=== PATIENT | female | born 1945 | race Caucasian/White ===

== ENCOUNTER 2016-10-17 22:03 | Emergency (ER) | payer MEDICARE, OTHER ==
[2010-01-25 14:31] VITALS: BMI 38.4
== END 2016-10-17 22:45 | disposition home or self-care (01) ==
LOC: D.ER 22:03
DX: I10 Essential (primary) hypertension (principal); F32.9 Major depressive disorder, single episode, unspecified; K21.9 Gastro-esophageal reflux disease without esophagitis

== ENCOUNTER 2016-10-22 20:44 | Inpatient (IN) | payer MEDICARE, OTHER ==
[~2016-10-22] VITALS: Ht 170.2 cm; Wt 118.7 kg
[2016-10-23 00:17] LABS: APPEARANCE HAZY (CLEAR); BACTERIA MANY /hpf (NONE SEEN); BILIRUBIN NEGATIVE (NEGATIVE); COLOR YELLOW (YELLOW); EPITHELIAL CELLS 0-5 /hpf (0-5); GLUCOSE NEGATIVE (NEGATIVE); KETONE NEGATIVE (NEGATIVE); LEUKOCYTE ESTERASE 1+ (NEGATIVE); NITRITE POSITIVE (NEGATIVE); PROTEIN TRACE mg/dL (NEGATIVE); RED CELLS - URINE 0-5 /hpf (0-5); SPECIFIC GRAVITY 1.015 (1.005-1.020); UROBILINOGEN NORMAL (NORMAL)
[2016-10-23 00:27] LABS: HEMATOCRIT 39.5 % (36.0-48.0); LYMPHOCYTES 34.2 % (15-50); MCH 28.3 pg (26.0-34.0); MCHC 35.4 g/dL (31.0-37.0); MCV 79.8 fL (80.0-100.0); MEAN PLATELET VOLUME 7.8 fL (7.4-10.4); NEUTROPHILS 54.4 % (40-80); PLATELET COUNT 239 10x3/uL (130-400); RBC 4.95 10x6/uL (4.00-5.40); RDW 14.4 % (11.5-14.5); WBC 8.4 10x3/uL (4.8-10.8)
[2016-10-23 01:00] LABS: CALCIUM 9.4 mg/dL (8.5-10.1); CARBON DIOXIDE 24.5 mmol/L (21.0-32.0); CREATINE KINASE 422 UL (21-215); CREATININE - SERUM 0.8 mg/dL (0.6-1.3); GLUCOSE 116 mg/dL (74-106); POTASSIUM - SERUM 3.3 mmol/L (3.5-5.1); UREA NITROGEN 9 mg/dL (7-18); eGFR NON AFRICAN AMERICAN 75 mL/min (90-120)
[2016-10-23 01:03] LABS: CALC OSMOLALITY 237 mosm/kg (275-300); CHLORIDE - SERUM 82 mmol/L (98-107); SODIUM 118 mmol/L (136-145); TROPONIN-I < 0.017 ng/mL (0.000-0.060)
--- NOTE | 2016-10-23 04:30 | NUR ---
PT ARRIVES TO FLOOR VIA WC ACCOMPANIED BY ER NURSE AND PT'S SPOUSE. ASSISTED INTO BED WITH MINIMAL ASSIST. IV TO LEFT UPPER ARM, IV IS VERY POSITIONAL. UNABLE TO RUN IV FLUIDS CONTINUOUSLY VIA THIS SITE. ATTEMPTED TO RESITE X4 WITHOUT SUCCESS BY NURSES X2. WILL HAVE IV NURSE COME TO SEE PT TODAY. ADMISSION ASSESSMENT AND HISTORY COMPLETED, VSS, AFEBRILE. CALL LIGHT PLACED WITHIN REACH. WILL MONITOR.
[2016-10-23] MEDS ORDERED: CARDIZEM CD240 MG PO (04:51)
[2016-10-23] MEDS ORDERED: DEPAKOTE ER250 MG PO (04:52)
[2016-10-23] MEDS ORDERED: PROTONIX40 MG PO (04:52)
[2016-10-23] MEDS ORDERED: HCTZ25 MG PO (04:53)
[2016-10-23] MEDS ORDERED: CHERATUSSIN AC473 ML PO (04:54)
[2016-10-23] MEDS ORDERED: ATIVAN0.5 MG PO (04:57)
[2016-10-23] MEDS ORDERED: CATAPRES0.1 MG PO (04:57)
[2016-10-23] MEDS ORDERED: CALCIUM 600+D T1 TA1 PO (04:58)
[2016-10-23 05:01] VITALS: BP 156/78; Ht 170.2 cm; Wt 118.7 kg
--- NOTE | 2016-10-23 07:15 | NUR ---
PT SITTING UP IN BED DENIES NEEDS AT THIS TIME WILL CONT TO MONITOR
[2016-10-23 07:23] LABS: CREATINE KINASE 380 UL (21-215); TROPONIN-I < 0.017 ng/mL (0.000-0.060)
[2016-10-23 07:31] LABS: CKMB 4.2 U/L (0.0-3.6)
[2016-10-23 08:04] VITALS: BP 151/63
--- NOTE | 2016-10-23 08:09 | NUR ---
CALLED GLO VASCULAR ACCESS NURSE TO COME SITE PT PIV.
--- NOTE | 2016-10-23 09:29 | NUR ---
GLO SITED PT TO R UPPER FA NS RUNNING AT 100 CC/HR. DC PIV WITH CATH TIP INTACT IN LEFT FA.
[2016-10-23 11:44] VITALS: BP 145/70
[2016-10-23 12:21] LABS: CKMB 3.9 U/L (0.0-3.6); CREATINE KINASE 362 UL (21-215); TROPONIN-I < 0.017 ng/mL (0.000-0.060)
--- NOTE | 2016-10-23 13:06 | NUR ---
PT SITTING UP IN BED IV FLUIDS STILL INFUSING WITHOUT ANY PROBLEMS. PT DENIES ANY NEEDS WILL CONT TO MONITOR
--- NOTE | 2016-10-23 14:40 | NUR ---
PT C/O HEADACHE. TRYING TO GET AHOLD OF PCP FOR TYLENOL ORDER.
--- NOTE | 2016-10-23 15:35 | NUR ---
HAVE BEEN UNABLE TO COLLECT URINE SAMPLE R/T TO MISSING THE HAT IN TOILET. HAVE ADJUSTED IT ACCORDINGLY, WILL KEEP ATTEMPTING COLLECTION
[2016-10-23 16:00] VITALS: BP 146/67
--- NOTE | 2016-10-23 16:38 | CN ---
PATIENT NAME:ANNABELLE GOMES MEDICAL RECORD: [id number] : 47 LOCATION:D. D.2129 ADMIT DATE: 10/23/16 ACCOUNT: [id number] CONSULTING PHYSICIAN: KANWAL WATERS MD REFERRING PHYSICIAN: WILI PAGAN MD DATE OF CONSULTATION: 10/23/2016 DIAGNOSES: 1. Hypertension. 2. Chest pain. 3. Hyponatremia. HISTORY OF PRESENT ILLNESS: Mrs. Gomes presents with chest pain and out of control blood pressure. Her systolic blood pressure has been running in the 200 range. She was on diltiazem 240 mg b.i.d. as well as clonidine 0.1 mg b.i.d. She did have chest pressure and now that her blood pressure has lowered she has had no further chest pressure. She was as well on hydrochlorothiazide. She comes with a sodium in the 118 range. She has a normal creatinine. Troponin is normal. EKG is with no ST-T changes. Her only risk factor for coronary artery disease other than hypertension is family history of coronary artery disease. REVIEW OF SYSTEMS: The patient reports easy bruising but reports no swollen glands. The patient reports no fever, no night sweats, no significant weight gain, no significant weight loss. No significant exercise tolerance. The patient reports no dry eyes, no irritation, no vision change. Patient reports no difficulty hearing and no ear pain. Patient reports no frequent nose bleeds or nose and sinus problems. Patient reports on arm pain on exertion. No shortness of breath while lying down. No history of heart murmur. Patient reports no cough, no wheezing or coughing up blood. Patient reports no abdominal pain, no vomiting. Normal appetite. No diarrhea and not vomiting blood. No nausea and no constipation. Patient reports no incontinence. No difficulty urinating. No hematuria. No increased frequency. Patient reports no muscle aches. No weakness, no arthralgias, no back pain. No swelling of the extremities. Patient reports no abnormal mole, no jaundice, no rashes. Reports no loss of consciousness. No weakness and no numbness. No seizures, dizziness, or headaches. The patient reports no depression, no sleep disturbance, feeling safe in a relationship and no alcohol abuse. Patient reports on fatigue. Reports no runny nose or sinus pressure. No itching, no hives, and no frequent sneezing. PHYSICAL EXAMINATION: GENERAL APPEARANCE: Well-nourished, well-developed, appears stated age. Level of distress, comfortable. PSYCHIATRIC: Mental status, alert, normal affect. Orientation, oriented to time, place and person. EYES: Lids and conjunctiva, noninjected. No discharge, no pallor. ENT: Lips, teeth, gums, normal dentition. Oropharynx, no cyanosis, no pallor. NECK: Carotid arteries, bilateral normal upstroke, no bruits, no thrills. JUGULAR VEINS: No jugular venous pressure or distention. CERVICAL LYMPH NODES: Nontender, nonenlarged. THYROID: Not enlarged. Nontender. No nodules. LUNGS: Respiratory effort, unlabored. CHEST: Normal curvature. No thoracic deformity. No chest wall tenderness. Percussion, resonant. Auscultation, clear. No wheezes, no rales, no rhonchi. CARDIOVASCULAR: Precordial exam, nondisplaced. No heaves or pericardial CONSULT REPORT [id number] ANNABELLE GOMES. Rate and rhythm, regular. Heart sounds, normal S1, normal S2. No S3, no gallop, no rub. Systolic murmur, not heard. Diastolic murmur, not heard. EXTREMITIES: No cyanosis, no edema. Peripheral pulses, full and equal in all extremities, except as noted. No bruits appreciated. ABDOMEN: Soft, nondistended. Normal aorta. No bruit. Nontender. No masses. Liver, nontender, no hepatomegaly. Spleen, nontender, no splenomegaly. MUSCULOSKELETAL: No joint tenderness. No joint swelling. No erythema. NEUROLOGICAL: Normal gait, normal strength, normal tone. SKIN: Warm and dry. OVERALL IMPRESSION: Chest pain associated with hypertension. Most likely this is just associated with the out of control hypertension. We would discontinue the hydrochlorothiazide obviously with the hyponatremia. They are replacing her sodium appropriately and we will continue the diltiazem as well as the clonidine b.i.d. and add lisinopril b.i.d. to her medications. We can also add Cardura if needed. She is quite bradycardic and we would avoid beta blockers due that. We will risk stratify with stress testing as an outpatient. TRANSINT:[id number] Voice Confirmation ID: [id number] DOCUMENT ID: [id number] KANWAL WATERS MD at 1638 CC: [id number] DICTATION DATE: 10/23/16 0829 PROFESSIONAL DRIVER: 10/23/16 1111 ADM IN [place] [id number] [place] [address]
--- NOTE | 2016-10-23 18:20 | NUR ---
PT SITTING UP IN BED WATCHING TV DENIES ANY NEEDS
[2016-10-23 18:44] LABS: CKMB 3.1 U/L (0.0-3.6); CREATINE KINASE 345 UL (21-215)
[2016-10-23 18:46] LABS: TROPONIN-I < 0.017 ng/mL (0.000-0.060)
[2016-10-23 19:00] VITALS: BP 186/78
[2016-10-24] VITALS: BP 170/69
[2016-10-24 07:04] LABS: ALBUMIN 3.8 g/dL (3.4-5.0); ALKALINE PHOSPHATASE 79 U/L (46-116); ALT (SGPT) 28 U/L (10-68); CALC OSMOLALITY 243 mosm/kg (275-300); CALCIUM 8.9 mg/dL (8.5-10.1); CARBON DIOXIDE 24.6 mmol/L (21.0-32.0); CHLORIDE - SERUM 87 mmol/L (98-107); CREATININE - SERUM 0.8 mg/dL (0.6-1.3); GLUCOSE 106 mg/dL (74-106); POTASSIUM - SERUM 3.1 mmol/L (3.5-5.1); PROTEIN - SERUM 7.2 g/dL (6.4-8.2); SODIUM 122 mmol/L (136-145); UREA NITROGEN 7 mg/dL (7-18); eGFR NON AFRICAN AMERICAN 75 mL/min (90-120)
--- NOTE | 2016-10-24 07:40 | NUR ---
PT IN SEMI FOWLERS POSITION VISITING WITH . PT DENIES PAIN OR NEEDS AT THIS TIME. RESP. EVEN AND UNLABORED AT THIS TIME.
[2016-10-24 08:00] VITALS: BP 182/90
--- NOTE | 2016-10-24 09:00 | NUR ---
PT AMBULATING IN HALLWAY WITH PT.
--- NOTE | 2016-10-24 09:40 | NUR ---
PHYSICAL ASSESSMENT DONE AFTER PT OUT OF RESTROOM WHERE SHE VOIDS PER SELF. SEE SHIFT ASSESSMENT. NS INFUSING VIA PUMP AT 100ML/HR TO RIGHT UPPER ARM. SITE C/D/I. UPPER RIGHT EXTREMETY SWOLLEN, NON-PITTING. PT STATES, "IT IS USUALLY ALWAYS A LITTLE MORE SWOLLEN THAN THE LEFT ARM DUE TO AN ALLERGIC REACTION A LONG TIME AGO, BUT MY HAND IS MORE SWOLLEN THAN USUAL AND MY THUMB HURTS WITHMOVEMENT". PULSES 2+ IN ALL EXTREMETIES; CAP.REFILL LESS THAN 3 SEC IN ALL EXTREMETIES. LUNGS CLEAR TO AUSCULTATION. SOCKS REMOVED AND REPLACED. 1+ PITTING EDEMA NOTED IN LOWER EXTREMETIES BILATERALLY. PT DENIES PAIN AT THIS TIME BUT DOES REPORT A COUGH THAT PRODUCES SCANT AMOUNT OF CLEAR SPUTUM. PT REQUESTS COUGH MEDICINE.
--- NOTE | 2016-10-24 10:12 | NUR ---
ROBITUSSIN COUGH MIXTURE GIVEN PO SEE EMAR. PT DENIES FURTHER NEEDS AT THIS TIME.
[2016-10-24 10:45] VITALS: BP 162/72; BP 184/68
[2016-10-24 12:00] VITALS: BP 162/80
--- NOTE | 2016-10-24 12:07 | NUR ---
PT CONTINUES TO REPORT PAIN IN RIGHT THUMB AND STATES THAT IT IS INCREASING IN SEVERITY. PT RATES PAIN 5/10 AT THIS TIME. TYLENOL 650MG GIVEN PO. IV PAUSED AT THIS TIME TO SEE IF PAIN DECREASES WHILE FLUID IS NOT INFUSING. SITE REMAINS C/D/I AND FLUSHES WITHOUT DIFFICULTY. WILL CONTINUE TO MONITOR.
--- NOTE | 2016-10-24 12:50 | NUR ---
PT SITTING IN HIGH FOWLERS POSITION EATING LUNCH. PT REPORTS THAT PAIN IN RIGHT THUMB HAS DECREASED "SIGNIFICANTLY". RATES PAIN 3/10. EXPLAINED TO PT THAT IV INFUSION WOULD BE RESTARTED AT THIS TIME TO ASSESS WHETHER OR NOT PAIN INCREASES AGAIN. PT VERBALIZES UNDERSTANDING AND DENIES FURTHER NEEDS AT THIS TIME.
--- NOTE | 2016-10-24 14:00 | NUR ---
PT DENIES INCREASE IN SEVERITY OF PAIN IN RIGHT HAND AFTER IV INFUSION ADMINISTRATION. PT REPORTS READINESS TO SHOWER. PT ASSISTED IN SHOWER, LINENS CHANGED, CLEAN GOWN APPLIED AND PT BACK TO BED IN SEMI FOWLERS
[2016-10-24 16:00] VITALS: BP 156/69
--- NOTE | 2016-10-24 16:00 | NUR ---
PT IN SEMI FOWLERS POSITION. GRANDAUGHTER AT BEDSIDE. BOTH DENIES NEEDS AT THIS TIME.
--- NOTE | 2016-10-24 17:00 | NUR ---
PT IN HIGH FOWLERS POSITION EATING DINNER TRAY. PT REQUESTS TYLENOL GIVEN PO FOR PAIN 4/10 IN RIGHT HAND.
--- NOTE | 2016-10-24 18:06 | NUR ---
PT AMBULATING IN ROOM BACK FROM BATHROOM. TYLENOL 650MG GIVEN PO FOR PT COMPLAINT OF PAIN IN RIGHT HAND 08/11. PT DENIES FURTHER NEEDS AT THIS TIME.
[2016-10-24 19:00] VITALS: BP 184/86
--- NOTE | 2016-10-24 20:50 | NUR ---
AMBUALTING IN ROOM. ADMIN SCHED MEDS. IV IN R UA INTACT WITH NS INFUSING AT 100 ML/HR. DENIES PAIN OR ANY OTHER NEEDS.
[2016-10-25] VITALS: BP 165/72
[2016-10-25 04:00] VITALS: BP 188/73
--- NOTE | 2016-10-25 05:30 | NUR ---
ADMIN TYLENOL 650 MG FOR C/O SHOULDER PAIN LEVEL 4 ON NUMBER SCALE, DESCRIBED ACHING. ADMIN SCHED PO MEDS. NO OTHER NEEDS VOICED.
[2016-10-25 06:38] LABS: BASOPHILS 0.4 % (0-2); EOSINOPHILS 1.3 % (0-7); HEMATOCRIT 37.2 % (36.0-48.0); IMMATURE GRANULOCYTES 0.1 % (0-5); MCH 28.8 pg (26.0-34.0); MCHC 34.9 g/dL (31.0-37.0); MCV 82.3 fL (80.0-100.0); MEAN PLATELET VOLUME 8.9 fL (7.4-10.4); MONOCYTES 13.2 % (2-11); PLATELET COUNT 222 10x3/uL (130-400); RBC 4.52 10x6/uL (4.00-5.40); RDW 13.7 % (11.5-14.5); WBC 6.9 10x3/uL (4.8-10.8)
[2016-10-25 07:02] LABS: CALC OSMOLALITY 261 mosm/kg (275-300); CALCIUM 9.1 mg/dL (8.5-10.1); CARBON DIOXIDE 25.8 mmol/L (21.0-32.0); CHLORIDE - SERUM 95 mmol/L (98-107); CREATININE - SERUM 0.8 mg/dL (0.6-1.3); GLUCOSE 101 mg/dL (74-106); POTASSIUM - SERUM 3.1 mmol/L (3.5-5.1); SODIUM 131 mmol/L (136-145); UREA NITROGEN 9 mg/dL (7-18); eGFR NON AFRICAN AMERICAN 75 mL/min (90-120)
--- NOTE | 2016-10-25 07:30 | NUR ---
AM ROUNDS - PT RESTING QUIETLY, DENIES NEEDS AT THIS TIME. PT STATES THAT PAIN IS 5/10, PT REQUESTED FOR SOMETHING STRONGER FOR PAIN. WILL FOLLOW UP. PT UP IN BATHROOM, FAMILY MEMBER ASSISTING PT WITH CARE. DENIES OTHER NEEDS, WILL CTM.
[2016-10-25 08:00] VITALS: BP 184/69
--- NOTE | 2016-10-25 09:43 | NUR ---
PT IS RESTING IN BED AND DENIES ANY CURRENT PAIN OR NEEDS. PTS HEAD NURSE IS JUANIS BREWER WHOM I AM THE PRECEPTOR OF, PT VERBALIZED THAT SHE HAS DONE EVERYTHING JUST FINE AND DENIES ANY COMPLAINTS OR NEEDS. WILL CTM OVER HER PATIENTS AND ASSIST IF NEEDED.
[2016-10-25 12:00] VITALS: BP 160/73
--- NOTE | 2016-10-25 12:23 | NUR ---
PT RESTING QUIETLY, DENIES NEEDS AT THIS TIME. EXPLAINED D/C PLAN AND PT VERBALIZED UNDERSTANDING. FAMILY AT BEDSIDE WILL CTM.
[2016-10-25 16:00] VITALS: BP 174/73
--- NOTE | 2016-10-25 18:24 | NUR ---
PT RESTING QUIETLY, DENIES PAIN AND NEEDS. BREATHING UNLABORED AND EQUAL. WILL REPORT ON PT CONDITION FOR THE DAY.
[2016-10-25 19:00] VITALS: BP 174/82
--- NOTE | 2016-10-25 19:15 | NUR ---
AMBULATING IN HALLWAY WITH FAMILY MEMBER. DENIES ANY NEEDS.
--- NOTE | 2016-10-25 21:30 | NUR ---
ADMIN SCHED MEDS. DENIES PAIN OR ANY NEEDS.
[2016-10-26] VITALS (7 sets, daily range): BP systolic 146–198; BP diastolic 66–86
[2016-10-26 05:31] LABS: BASOPHILS 0.5 % (0-2); EOSINOPHILS 1.5 % (0-7); HEMATOCRIT 37.3 % (36.0-48.0); HEMOGLOBIN 12.6 g/dL (12-16); IMMATURE GRANULOCYTES 0.3 % (0-5); LYMPHOCYTES 32.9 % (15-50); MCH 28.4 pg (26.0-34.0); MCHC 33.8 g/dL (31.0-37.0); MEAN PLATELET VOLUME 8.8 fL (7.4-10.4); MONOCYTES 9.9 % (2-11); NEUTROPHILS 54.9 % (40-80); PLATELET COUNT 217 10x3/uL (130-400); RBC 4.44 10x6/uL (4.00-5.40); RDW 14.1 % (11.5-14.5); WBC 7.8 10x3/uL (4.8-10.8)
[2016-10-26 05:38] LABS: ANION GAP 11.6 mmol/L (8-16); CALCIUM 9.2 mg/dL (8.5-10.1); CREATININE - SERUM 0.9 mg/dL (0.6-1.3); POTASSIUM - SERUM 3.6 mmol/L (3.5-5.1)
--- NOTE | 2016-10-26 05:45 | NUR ---
ADMIN SCHED MEDS. REINFORCED IV. ASSISTED TO BATHROOM.
--- NOTE | 2016-10-26 07:42 | NUR ---
PT RESTING QUIETLY, DENIES PAIN AND NEEDS AT THIS TIME. NS RUNNING AT 100ML/HR TO RIGHT UPPER ARM. FALL SOCKS ON PT, FAMILY PRESENT IN ROOM, BREATHING UNLABORED AND EQUAL, WILL CTM.
--- NOTE | 2016-10-26 11:52 | NUR ---
CALLED PHARMACY ABOUT CARDURA, WILL GIVE MED WHEN IT IS AVIALABLE IN THE PYXIS.
--- NOTE | 2016-10-26 19:00 | NUR ---
INITIAL ROUNDS MADE. PT SITTING UP IN BED WATCHING TV WITH FAMILY IN ROOM. IV TO RT UPPER ARM INFILTRATED AND REMOVED WITH CATH TIP INTACT. PT REQUESTING NOT TO BE RESITED DUE TO "DC TOMORROW AND SUCH A HARD STICK". WILL ABIDE PT'S WISHES AT THIS TIME. WILL CONT TO MONITOR.
--- NOTE | 2016-10-26 21:23 | NUR ---
HS MEDS GIVEN WITHOUT DIFFICULTY. WILL CONT TO MONITOR.
[2016-10-27 04:00] VITALS: BP 150/71
[2016-10-27 06:02] LABS: CALC OSMOLALITY 264 mosm/kg (275-300); CALCIUM 9.5 mg/dL (8.5-10.1); CARBON DIOXIDE 24.6 mmol/L (21.0-32.0); CHLORIDE - SERUM 97 mmol/L (98-107); CREATININE - SERUM 0.8 mg/dL (0.6-1.3); GLUCOSE 100 mg/dL (74-106); POTASSIUM - SERUM 3.7 mmol/L (3.5-5.1); SODIUM 132 mmol/L (136-145); eGFR NON AFRICAN AMERICAN 75 mL/min (90-120)
[2016-10-27 06:05] LABS: UREA NITROGEN 12 mg/dL (7-18)
--- NOTE | 2016-10-27 07:51 | NUR ---
AM ROUNDING DONE WITH PATIENT IN RESTROOM, DENIES NEEDS THROUGH THE DOOR. FEMALE MEMBER IN CHAIR AT BEDSIDE. ON ROOM AIR, REPORTS THAT SHE HOPES TO GO HOME TODAY. ON EP, LAB VALUES ARE WNL. 1000 CC FLUID RESTRICTION.
[2016-10-27 08:20] VITALS: BP 160/67
[2016-10-27 12:17] VITALS: BP 135/57
[2016-10-27] MEDS ORDERED: ZESTRIL40 MG PO (13:38)
[2016-10-27] MEDS ORDERED: CARDURA1 MG PO (13:38)
--- NOTE | 2016-10-27 14:53 | NUR ---
Patient Name: ANNABELLE GOMES Admission Status: ER Accout number: [id number] Admission Date: 10-23-2016 : 1945 Admission Diagnosis:CHEST PAIN, UNSPECIFIED Attending: AMERICO Current LOS: 4 Anticipated DC Date: 10-27-2016 Planned Disposition: Home Primary Insurance: MEDICARE A & B Discharge Planning Comments: CM MET WITH PATIENT TO DISCUSS DISCHARGE PLANNING/NEEDS. PATIENT STATED THAT SHE LIVES AT HOME AND IS INDEPENDENT WITH ALL ADL'S. SHE SAID THAT HER GRAND DAUGHTER IN LAW IS GOING TO BE HER TRANSPORT HOME. SHE STATED THAT SHE IS TO HER GRANDSON THAT IS GETTING READY TO DEPLOY OUT IN THE NEXT COUPLE OF WEEKS. SHE STATED SHE HAS A WALKER AND CANE AT HOME THAT SHE HAD FROM WHEN SHE HAD A DOUBLE KNEE REPLACEMENT, BUT SHE DOESN'T NEED TO USE THEM ANYMORE. SHE DENIES THE NEED FOR HOME HEALTH OR ANY OTHER COMMUNITY SERVICE AT THIS TIME. PATIENT TO DISCHARGE HOME WHEN PAPERWORK DONE. Petroleum Supply Specialist: Chely Kennedy Is the patient Alert and Oriented? Yes * How many steps to enter\exit or inside your home? 2 * PCP DR WILI PAGAN * [facility] [place] * Preadmission Environment Home with Family * ADLs Independent * Equipment Cane Walker * List name and contact numbers for known caregivers / representatives who currently or will assist patient after discharge: SHABANA GARCIA, GREAT GRAND DAUGHTER, * Additional services required to return to the preadmission environment? No * Can the patient safely return to the preadmission environment? Yes * Has this patient been hospitalized within the prior 30 days at any hospital? No
--- NOTE | 2016-10-27 14:55 | NUR ---
VERBAL AND WRITTEN DISCHARGE INSTURCITONS GIVEN TO PATIENT. NO IV TO REMOVE. DISCHARGED HOME VIA WHEELCHAIR.
== END 2016-10-27 15:29 | disposition home or self-care (01) | DRG 641 ==
LOC: OBSVTIME → D.ER 20:44 → D.OPS 20:44 → D.ER 10-23 01:28 → OBSVTIME 10-23 02:49 → D.M2 10-23 02:49
PROVIDERS: Emergency Medicine; Family Medicine; Nurse Practitioner Acute Care; ADMIT Family Medicine
DX: E87.1 Hypo-osmolality and hyponatremia (principal); R07.9 Chest pain, unspecified; I10 Essential (primary) hypertension

== ENCOUNTER 2016-11-02 13:47 | Emergency (ER) | payer MEDICARE, OTHER ==
[2016-10-23 05:01] VITALS: BMI 43.5
[~2016-11-02 13:47] MED LIST: ATIVAN0.5 MG PO; CALCIUM 600+D T1 TA1 PO; CARDIZEM CD240 MG PO; CARDURA1 MG PO; CATAPRES0.1 MG PO; CHERATUSSIN AC473 ML PO; DEPAKOTE ER250 MG PO; HCTZ25 MG PO; PROTONIX40 MG PO; ZESTRIL40 MG PO
== END 2016-11-02 16:51 | disposition home or self-care (01) ==
LOC: D.ER 13:47
DX: K59.00 Constipation, unspecified (principal); R10.9 Unspecified abdominal pain; I10 Essential (primary) hypertension; K21.9 Gastro-esophageal reflux disease without esophagitis

== ENCOUNTER 2016-11-14 07:31 | Outpatient (CLI) | payer MEDICARE, OTHER ==
[~2016-11-14] VITALS: Ht 170.2 cm; Wt 125.0 kg
--- NOTE | ~2016-11-14 | HP ---
PATIENT: ANNABELLE GOMES MEDICAL RECORD: [id number] ACCOUNT: [id number] LOCATION:EVIE : 47 ADMISSION DATE: 11/14/16 HISTORY AND PHYSICAL EXAMINATION HISTORY AND PHYSICAL PROBLEM LIST: 1. Chest pain compatible with angina. 2. Hypertension. 3. Family history of coronary artery disease. 4. Abnormal nuclear stress test. HISTORY OF PRESENT ILLNESS: The patient presented with anginal symptomatology and out of control hypertension. She continues to have chest pain despite now good control of her hypertension. Risk stratified with stress testing revealing significant perfusion defect anterior apically and laterally. She is now brought for cardiac catheterization. PHYSICAL EXAMINATION: HEAD, EYES, EARS, NOSE, AND THROAT: Benign. NECK: Supple. No jugular venous distention. Carotid upstroke plus two bilaterally without bruits. LUNGS: Overall clear to auscultation and percussion. HEART: Regular. Normal S1, normal S2. No S3, no S4. No murmurs. BONES, JOINTS, EXTREMITIES: No clubbing, cyanosis, or edema. OVERALL IMPRESSION: Anginal symptomatology despite adequate blood pressure control with abnormal nuclear stress test. There is a high likelihood she has hemodynamically significant coronary artery disease. Will proceed with coronary angiography. KANWAL WATERS MD CC: [id number] DICTATION DATE: 11/14/16 0800 ENVELOPE PATTERNMAKER: DON 11/14/16 1503 DEP CLI 11/14/16 [facility] [address] [place] [address]
--- NOTE | ~2016-11-14 | HEMODYNAMI ---
PATIENT:ANNABELLE GOMES MEDICAL RECORD: [id number] : 47 LOCATION:DMEGAN ADMISSION DATE: 11/14/16 Generatedon:11/14/201611:13 Patient name: ANNABELLE GOMES Patient #: [id number] SSN: : 1945 Date of study: 11/14/2016 Page: Of Hemodynamic Procedure Report Patient Data Patient Demographics Procedure consent was obtained First Name: ANNABELLE Gender: Female Last Name: ELISEO : 1945 [facility] Initial: VIANCA Age: 70 year(s) Patient #: [id number] Race: Unknown Additional ID: [id number] Contact details Address: [address] [place] [address] ROAD State: [place] City: [place] Zip code: [address] Past Medical History Allergies Allergen Reaction Date Comments Reported Other allergy 11/14/2016 avapro, corazpam Admission Admission Data Admission Date: 11/14/2016 Admission Time: 7:31 Lab Results Lab Result Date: 11/14/2016 Lab Result Time: 8:30 Biochemistry Name Units Result Min Max BUN mg/dl 15 --(--*-)-- 7 18 Creatinine mg/dl 1.2 --(---*)-- 0.6 1.3 CBC Name Units Result Min Max Hematocrit % 34.4 *-(----)-- 42 54 Hemoglobin g/dl 12.2 *-(----)-- 13.5 17.5 Procedure Procedure Types Cath Procedure Diagnostic Procedure LHC LHC w/Coronaries Miscellaneous Procedures Moderate Sedation up to 15 minutes Procedure Description Procedure Date Procedure Date: 11/14/2016 Procedure Start Time: 11:03 Procedure End Time: 11:09 Procedure Staff Name Function Caden Davis MD Performing Physician Jelena Morales RT Scrub Ngozi Hearn RN Nurse Ricky Holland RT Monitor Freddy Galloway RN Notereader Procedure Data Cath Procedure Fluoroscopy Diagnostic fluoroscopy Total fluoroscopy Time: 0.6 time: 0.6 min min Diagnostic fluoroscopy Total fluoroscopy dose: 354 dose: 354 mGy mGy Contrast Material Contrast Material Type Amount (ml) Isovue 300 45 Entry Location Entry Primary Successful Side Size Upsize Upsize Entry Closure Lam ccessful Closure Location (Fr) 1 (Fr) 2 (Fr) Remarks Device Remarks Radial Right 6 Fr Mechanical artery Short Compression Estimated blood loss: 5 ml Diagnostic catheters Device Type Used For End Catheter Placement Diagnostic Terumo 5Fr Procedure [place] 110cm catheter Procedure Complications No complications Procedure Medications Medication Administration Route Dosage Oxygen NC 3 l/min Lidocaine 2% added to field 20 Heparin Flush Bag added to field 2 bags (1000units/500ml NS) 0.9% NaCl I.V. 100 ml/hr Versed I.V. 1 mg Fentanyl I.V. 50 mcg Versed I.V. 1 mg Fentanyl I.V. 25 mcg Hemodynamics Rest HGB: 12.2 (g/dl) Heart Rate: 55 (bpm) Snapshots Pre Cath Intra NCS Post Cath Vital Signs Time Heart Resp SPO2 etCO2 [id number] NIBP Rhythm Pain Sedation Rate (ipm) (%) (mmHg) (mmHg) (mmHg) Status Level (bpm) 10:50:22 55 14 98 0 0 135/58(98) SB 0 (11) 10(A) , No pain 10:55:08 53 35 98 0 0 145/60(99) SB 0 (11) 10(A) , No pain 10:59:18 54 19 93 0 0 119/58(77) SB 0 (11) 10(A) , No pain 11:04:01 53 12 95 0 0 127/57(91) SB 0 (11) 10(A) , No pain 11:08:05 58 13 93 0 0 114/54(72) SB 0 (11) 9(A) , No pain Medications Time Medication Route Dose Verified Delivered Reason Notes Effe ctiveness by by 10:52:00 Oxygen NC 3 Ngozi Ngozi used for l/min Nadiya Nadiya shovel mechanic RN 10:52:10 Lidocaine 2% added 20ml Ngozi Ngozi used for to vial Nadiya Nadiya procedure field RN RN 10:52:19 Heparin Flush added 2 Ngozi Ngozi used for Bag to bags Nadiya Nadiya procedure (1000units/500ml field RN RN NS) 10:52:32 0.9% NaCl I.V. 100 Ngozi Ngozi used for ml/hr Nadiya Nadiya shovel mechanic RN 11:03:00 Versed I.V. 1 mg Ngozi Ngozi for Nadiya Nadiya sedation RN RN 11:03:08 Fentanyl I.V. 50 Ngozi Ngozi for mcg Nadiya Nadiya sedation RN RN 11:06:40 Versed I.V. 1 mg Ngozi Ngozi for Nadiya Nadiya sedation RN RN 11:06:51 Fentanyl I.V. 25 Ngozi Ngozi for mcg Nadiya Nadiya sedation RN engine lathe operator Log Time Note 10:10:38 Freddy Galloway RN sent for patient. Start room use. 10:35:19 Informed consent obtained and on chart 10:40:25 Time tracking: Regular hours 10:40:28 Plan of Care:Hemodynamics will remain stable., Cardiac rhythm will remain stable., Comfort level will be maintained., Respiratory function will remain adequate., Patient/ family verbilizes understanding of procedure., Procedure tolerated without complication., Recovers from procedure without complications.. 10:40:32 Patient received from Pre/Post Procedure Room to CCL 1 Alert and oriented. Tansferred to table in Supine position. 10:40:33 Warm blankets applied, and hung hugger turned on for patient comfort. 10:40:34 Correct patient and procedure confirmed by team. 10:40:34 ECG and BP/O2 sat monitors applied to patient. 10:40:38 H&P Date Dictated: 11/14/2016 Within 30 days and on chart., H&P Addendum completed by physician on day of procedure. (MUST COMPLETE FOR ALL OUTPATIENTS). 10:40:39 Pre-procedure instructions explained to patient. 10:40:39 Pre-op teaching completed and patient verbalized understanding. 10:40:41 Family in patients room. 10:40:43 Patient NPO since Midnight. 10:48:34 Vital chart was started 10:52:00 Oxygen 3 l/min NC was administered by Ngozi Hearn RN; used for procedure; 10:52:10 Lidocaine 2% 20ml vial added to field was administered by Ngozi Hearn RN; used for procedure; 10:52:19 Heparin Flush Bag (1000units/500ml NS) 2 bags added to field was administered by Ngozi Hearn RN; used for procedure; 10:52:32 0.9% NaCl 100 ml/hr I.V. was administered by Ngozi Hearn RN; used for procedure; 10:54:07 Baseline sample Acquired. 10:54:12 Rhythm: sinus rhythm 10:54:31 Patient allergic to Other allergyavapro, corazpam 10:54:33 Is the patient allergic to Iodine/contrast media? No. 10:54:36 Is patient on blood thinner?No 10:54:40 Patient diabetic? No. 10:54:43 Previous problem with sedation/anesthesia? No ? 10:54:44 Snore? Yes 10:54:44 Sleep apnea? Yes 10:54:45 Deviated septum? No 10:54:46 Opens mouth fully? Yes 10:54:46 Sticks out tongue? Yes 10:54:48 Airway obstruction? No ? 10:54:50 Dentures? No ? 10:54:55 Modified Wali's test Ulnar < 7 seconds 10:54:57 Patient pain scale 0/10 ?. 10:55:07 IV patent on arrival in left forearm with 0.9% NaCl at [facility]. 10:56:02 Lab Result : Creatinine 1.2 mg/dl 10:56:02 Lab Result : BUN 15 mg/dl 10:56:02 Lab Result : Hemoglobin 12.2 g/dl 10:56:02 Lab Result : Hematocrit 34.4 % 10:56:04 Lab results completed and on chart. 10:56:07 Right Radial & Right Groin area was prepped with chlora-prep and draped in sterile fashion 10:56:08 Alarms reviewed by R. N. 10:56:08 Sharps counted by scrub and verified by R.N. 10:56:11 Use device set Radial Dx 10:56:14 Tegaderm 4 x 4 opened to sterile field. 10:56:15 Acist Manifold opened to sterile field. 10:56:16 Acist Hand Control opened to sterile field. 10:56:17 Acist Syringe opened to sterile field. 10:56:17 Medline Cath Pack opened to sterile field. 10:56:17 Bag Decanter opened to sterile field. 10:56:18 Terumo 6Fr Slender Glidesheath opened to sterile field. 10:56:18 St Aman 260cm J .035 wire opened to sterile field. 11:00:59 Zero performed for pressure channel P1 11:01:13 Zero performed for pressure channel P1 11:03:00 Versed 1 mg I.V. was administered by Ngozi Hearn RN; for sedation; 11:03:08 Fentanyl 50 mcg I.V. was administered by Ngozi Hearn RN; for sedation; 11:03:29 Physician arrived 11::30 --------ALL STOP TIME OUT------ 11::31 Final Timeout: patient, procedure, and site verified with staff and physician. All members of the team are in agreement. 11:03:32 Right Radial & Right Groin site verified by team. 11:03:35 Physical assessment completed. ASA score P 2 - A patient with mild systemic disease as per Caden Davis MD. 11:03:37 Sedation plan: IV Moderate Sedation Versed, Fentanyl 11:03:43 Procedure started. 11:03:44 Full Disclosure recording started 11:03:47 Local anesthetic to right radial artery with Lidocaine 2% by Caden Davis MD.INITIAL ACCESS ONLY 11:03:56 A 6 Fr Short sheath was inserted into the Right Radial artery 11:05:18 A Diagnostic Terumo 5Fr [place] 110cm catheter was advanced over the wire and used for Procedure. 11:05:47 LV gram done using BECERRA 11:05:50 Injector settings: Ml/sec: 5, Volume: 15, 11:05:55 EF : 60 % 11:05:58 LCA angiography performed. 11:06:40 Versed 1 mg I.V. was administered by Ngozi Hearn RN; for sedation; 11:06:47 RCA angiography performed. 11:06:51 Fentanyl 25 mcg I.V. was administered by Ngozi Hearn RN; for sedation; 11:06:52 Catheter removed. 11:07:40 Terumo TR Band Large opened to sterile field. 11:07:52 Sheath removed intact; hemostasis achieved with Mechanical Compression to the Right Radial artery. 11:07:53 Procedure ended.(Physican Out) 11:08:35 Fluoroscopy time 00.60 minutes. 11:08:39 Flurop Dose total: 354 11:08:39 Fluoroscopy dose: 354 mGy 11:08:44 Contrast amount:Isovue 300 45ml. 11:08:45 Sharps counted by scrub and verified by R.N. 11:08:47 TR band inflated with 12cc of air. 11:08:48 Insertion/operative site no bleeding no hematoma. 11:08:53 Post right radial artery:stable, soft, clean and dry 11:08:55 Post Procedure Pulses reassessed and unchanged 11:08:57 Post-procedure physical assessment completed. ASA score P 2 - A patient with mild systemic disease as per Caden Davis MD. 11:08:58 Post procedure rhythm: unchanged. 11:09:00 Estimated blood loss: 5 ml 11:09:02 Post procedure instruction explained to patient.Patient verbalizes understanding. 11:09:02 Patient needs reinforcement of post procedure teaching. 11:09:09 Procedure type changed to Cath procedure, Diagnostic procedure, LHC, LHC w/Coronaries, Miscellaneous Procedures, Moderate Sedation up to 15 minutes 11:09:23 Procedure and supply charges have been captured, reviewed, submitted and are correct. 11:09:25 Procedure Complication : No complications 11:09:27 Vital chart was stopped 11:09:28 See physician's report for complete and final results. 11:09:29 Report given to Pre/Post Procedure Room. 11:09:32 Patient transfered to Pre/Post Procedure Room with Stretcher. 11:09:34 Procedure ended. 11:09:34 Full Disclosure recording stopped 11:09:37 End room use (Document Last) Device Usage Item Name Manufacture Quantity Catalog Hospital Part Current Minimal Lot# / Number Charge Number Stock Stock Serial# Code Tegaderm 4 1 [id number] 5 x 4 Acist Acist 1 65830 462884 210056 337224 5 Manifold [employer] Inc Acist Hand Acist 1 46923 069599 902390 978714 5 Control [employer] Inc Acist Acist 1 87326 238244 716693 378752 20 Syringe Medical Systems Inc Medline Cardinal 1 [id number] 309962 35944 094959 5 Cath Pack Health Bag Microtek 1 2001S 943432 04392 046542 5 Decanter [employer] Inc. Terumo 6Fr Terumo 1 [id number] 606296 582450 527890 [address] St Aman 1 [id number] 545294 922023 142756 30 260cm J .035 wire Diagnostic Terumo 1 27-2708 179161 002988 094165 5 Terumo 5Fr [place] 110cm catheter Terumo TR Terumo 1 [id number] 681524 983858 581284 40 Band Large Signature Audit [place] Stage Time Signature Unsigned Intra-Procedure 11/14/2016 Ricky Holland 11:13:18 AM RT(R) Signatures Monitor : Ricky Holland RT Signature : Date : Time : [id number] [place] [address]
--- NOTE | ~2016-11-14 | PRO ---
PATIENT:ANNABELLE GOMES MEDICAL RECORD: [id number] : 47 LOCATION:D.CAT ADMISSION DATE: 11/14/16 PROCEDURE PERFORMED BY: KANWAL WATERS MD PROCEDURE DATE: 11/14/16 PROCEDURES: 1. Left heart catheterization. 2. Selective coronary angiography. 3. Left ventriculogram. INDICATION: 1. Chest pain compatible with angina. PROCEDURE IN DETAIL: After informed consent was obtained and after detailed explanation of risks, benefits, as well as alternative therapies, the patient elected to proceed with angiogram. The right radial area was prepped and draped in a normal sterile fashion. The right radial artery was cannulated via modified Seldinger technique with placement of 5-Nepali sheath. All catheters exchanged through this sheath. FINDINGS: The left ventriculogram was performed in standard 30 degree BECERRA view, reveals good cardiac wall motion throughout all segments. Overall ejection fraction 60%. SELECTIVE CORONARY ANGIOGRAPHY: 1. Left main, left anterior descending, left circumflex, and right coronary artery are all smooth-walled vessels with no angiographic evidence of coronary artery disease. OVERALL IMPRESSION: 1. No angiographic evidence of coronary artery disease. 2. Normal left heart pressures. 3. Normal left ventricular systolic function. 4. Chest pain is noncardiac in etiology. No further cardiac workup needs to be ascertained. KANWAL WATERS MD CC: [id number] DICTATION DATE: 11/14/162151 CHIP FRIER: JLETITIA 11/14/162151 DEP CLI 11/14/16 [facility] [address] [id number]
[2016-11-14 08:20] VITALS: BP 131/61; Ht 170.2 cm; Wt 125.0 kg
[2016-11-14] MEDS ORDERED: SINGULAIR10 MG PO (08:24)
[2016-11-14] MEDS ORDERED: MUCINEX DM ER1 EAC1 PO (08:25)
[2016-11-14] MEDS ORDERED: BENZONATATE200 MG PO (08:25)
[2016-11-14] MEDS ORDERED: FLUTICASONE PRO16 GM NASAL (08:26)
[2016-11-14] MEDS ORDERED: BREO ELLIPTA 11 EACH INH (08:26)
[2016-11-14] MEDS ORDERED: PLAVIX75 MG PO (08:27)
[2016-11-14] MEDS ORDERED: PROTONIX40 MG PO (08:29)
[2016-11-14 08:36] LABS: BASOPHILS 0.5 % (0-2); EOSINOPHILS 1.6 % (0-7); HEMATOCRIT 34.4 % (36.0-48.0); HEMOGLOBIN 12.2 g/dL (12-16); IMMATURE GRANULOCYTES 0.2 % (0-5); MCHC 35.5 g/dL (31.0-37.0); MCV 81.9 fL (80.0-100.0); MEAN PLATELET VOLUME 8.5 fL (7.4-10.4); NEUTROPHILS 51.7 % (40-80); PLATELET COUNT 219 10x3/uL (130-400); RDW 13.5 % (11.5-14.5); WBC 5.6 10x3/uL (4.8-10.8)
[2016-11-14 09:03] LABS: CALC OSMOLALITY 247 mosm/kg (275-300); CALCIUM 9.5 mg/dL (8.5-10.1); CARBON DIOXIDE 24.7 mmol/L (21.0-32.0); CHLORIDE - SERUM 87 mmol/L (98-107); CKMB 4.8 U/L (0.0-3.6); CREATINE KINASE 413 UL (21-215); CREATININE - SERUM 1.2 mg/dL (0.6-1.3); GLUCOSE 112 mg/dL (74-106); POTASSIUM - SERUM 4.3 mmol/L (3.5-5.1); SODIUM 122 mmol/L (136-145); UREA NITROGEN 15 mg/dL (7-18); eGFR NON AFRICAN AMERICAN 47 mL/min (90-120)
[2016-11-14 09:09] LABS: TROPONIN-I < 0.017 ng/mL (0.000-0.060)
--- NOTE | 2016-11-14 11:15 | NUR ---
1115 RECIEVED TO ROOM VIA STRETCHER FROM LAP MAKER WITH CHEST PAIN DENIED TR BAND TO R/WRIST CDI NO BLEEDING NO HEMATOMA NOTED. REPORTS OF A CLEAN CATH WITH NO INTERVENTION AT THIS TIME VSS WILL MONITOR
--- NOTE | 2016-11-14 11:30 | NUR ---
VSS WITH NO DISTRESS NOTED. TR BAND TO R/WRIST CDI NO BLEEDING NO HEMATOMA NOTED.
--- NOTE | 2016-11-14 12:02 | NUR ---
REPOSITIONED TO SITTING WITH HOB UP 30 DEGREES WITH SANDWICH AND SODA PROVIDED. CHEST PAIN IS DENIED. TR BAND REMAINS TO R/WRIST CDI NO BLEEDING NO HEMATOMA NOTED
--- NOTE | 2016-11-14 12:35 | NUR ---
2 CC AIR REMOVED FROM TR BAND WITH NO BLEEDING NO HEMATOMA NOTED. CHEST PAIN IS DENIED
--- NOTE | 2016-11-14 12:40 | NUR ---
2 CC AIR REMOVED FROM TR BAND WITH NO BLEEDING NO HEMATOMA NOTED
--- NOTE | 2016-11-14 12:58 | NUR ---
2 CC AIR REMOVED FROM TR BAND WITH NO BLEEDING NO HEMATOMA NOTED. PIV REMOVED WITH DRESSING APPLIED. CHEST PAIN IS DENIED. PATIENT UP TO GET DRESSED FOR DISCHARGE HOME
--- NOTE | 2016-11-14 13:12 | NUR ---
VERBAL AND WRITTEN DISCHARGE GONE OVER WITH PATIENT AND FAMILY. TR BAND REMOVED WITH NO BLEEDING NO HEMATOMA NOTED. DRESSING APPLIED LEFT VIA WC TO PARKING FOR FAMILY TO DRIVE HOME
== END 2016-11-14 13:14 | disposition home or self-care (01) ==
LOC: D.CATH 07:31
PROVIDERS: Internal Medicine Interventional Cardiology
DX: I20.9 Angina pectoris, unspecified (principal); R94.30 Abnormal result of cardiovascular function study, unspecified; Z82.49 Family history of ischemic heart disease and other diseases of the circulatory system; I10 Essential (primary) hypertension; Z01.812 Encounter for preprocedural laboratory examination

== ENCOUNTER → 2016-12-18 12:17 | Outpatient (CLI) | payer MEDICARE, OTHER ==
[2016-11-14 08:20] VITALS: BMI 43.2
[~2016-12-18 12:17] MED LIST changes: +BENZONATATE200 MG PO; +BREO ELLIPTA 11 EACH INH; +FLUTICASONE PRO16 GM NASAL; +MUCINEX DM ER1 EAC1 PO; +PLAVIX75 MG PO; +SINGULAIR10 MG PO
[2016-12-19 09:15] LABS: IMMUNOGLOBULIN E 43 IU/mL (0-100)
== END | disposition home or self-care (01) ==
LOC: D.RT 12:17
PROVIDERS: Internal Medicine Pulmonary Disease
DX: J45.991 Cough variant asthma (principal)

== ENCOUNTER → 2017-01-26 09:19 | Outpatient (CLI) | payer MEDICARE, OTHER ==
[2016-11-14 08:20] VITALS: BMI 43.2
== END | disposition home or self-care (01) ==
LOC: D.LAB 09:19 → D.CT 10:30
PROVIDERS: Internal Medicine Pulmonary Disease
DX: J98.4 Other disorders of lung (principal)

== ENCOUNTER 2017-02-10 09:04 | Outpatient (CLI) | payer MEDICARE, OTHER ==
[2017-02-10 09:55] LABS: BASOPHILS 0.5 % (0-2); EOSINOPHILS 2.4 % (0-7); HEMOGLOBIN 11.7 g/dL (12-16); IMMATURE GRANULOCYTES 0.3 % (0-5); LYMPHOCYTES 27.4 % (15-50); MCHC 34.4 g/dL (31.0-37.0); MCV 84.4 fL (80.0-100.0); MEAN PLATELET VOLUME 8.8 fL (7.4-10.4); MONOCYTES 11.6 % (2-11); NEUTROPHILS 57.8 % (40-80); PLATELET COUNT 215 10x3/uL (130-400); RBC 4.03 10x6/uL (4.00-5.40); RDW 13.5 % (11.5-14.5); WBC 6.1 10x3/uL (4.8-10.8)
[2017-02-10 10:05] LABS: APTT 28.3 SECONDS (22.8-39.4); INR 0.9 (0.85-1.17); PROTIME 11.9 SECONDS (11.6-15.0)
[2017-02-10] MEDS ORDERED: MUCINEX DM ER1 EAC1 PO (10:20)
[2017-02-10] MEDS ORDERED: BREO ELLIPTA 21 EACH (10:20)
[2017-02-10] MEDS ORDERED: IPRAT-ALBUT 0.5-3 ML UPD (10:23)
[2017-02-10] MEDS ORDERED: PROMETHAZINE W473 M1 PO (10:24)
[2017-02-10] MEDS ORDERED: CATAPRES0.2 MG PO (10:25)
[2017-02-10] MEDS ORDERED: REMERON15 MG PO (10:30)
[2017-02-10 10:50] VITALS: BP 146/70; BMI 41.6
--- NOTE | 2017-02-10 12:05 | NUR ---
PT ARRIVES TO ROOM, ALERT, ORIENTED. ADVISED OF NPO FOR ONE HOUR. SEE FREQUENT VITAL SIGN SHEET FOR VS.
--- NOTE | 2017-02-10 14:18 | NUR ---
D/C INSTRUCTIONS EXPLAINED TO PT. VOICED UNDERSTANDING. COPIES OF ALL GIVEN TO PT.
--- NOTE | 2017-02-10 14:23 | NUR ---
D/C'D HOME VIA W/C TO PRIVATE CAR.
[2017-02-11 16:14] LABS: AFB SPECIMEN PROCESSING Concentration (())
[2017-02-13 15:22] LABS: FUNGUS STAIN Final report (())
[2017-03-10 08:17] LABS: FUNGUS MYCOLOGY CULTURE Final report (())
[2017-04-03 11:18] LABS: ACID FAST CULTURE Negative (()); ACID FAST SMEAR Negative (())
== END 2017-02-10 14:31 | disposition home or self-care (01) ==
LOC: D.OPS 09:04
PROVIDERS: Internal Medicine Pulmonary Disease
DX: C34.90 Malignant neoplasm of unspecified part of unspecified bronchus or lung (principal); R06.02 Shortness of breath; R05 Cough; J45.991 Cough variant asthma; K21.9 Gastro-esophageal reflux disease without esophagitis; G47.33 Obstructive sleep apnea (adult) (pediatric); J98.4 Other disorders of lung; I25.10 Atherosclerotic heart disease of native coronary artery without angina pectoris; I10 Essential (primary) hypertension; Z01.812 Encounter for preprocedural laboratory examination

== ENCOUNTER → 2017-02-26 14:12 | Outpatient (CLI) | payer MEDICARE, OTHER ==
[2017-02-10 10:50] VITALS: BMI 41.6
[~2017-02-26 14:12] MED LIST changes: +BREO ELLIPTA 21 EACH; +CATAPRES0.2 MG PO; +IPRAT-ALBUT 0.5-3 ML UPD; +PROMETHAZINE W473 M1 PO; +REMERON15 MG PO
== END | disposition home or self-care (01) ==
LOC: D.RT 14:12
DX: J45.909 Unspecified asthma, uncomplicated (principal)

== ENCOUNTER → 2017-07-14 19:35 | Outpatient (CLI) | payer MEDICARE, OTHER | END | disposition home or self-care (01) | LOC: D.MAMMO 14:15 | DX: Z12.31 Encounter for screening mammogram for malignant neoplasm of breast (principal) ==

== ENCOUNTER 2017-08-18 14:04 | Outpatient (CLI) | payer MEDICARE, OTHER | END 2017-08-18 14:05 | disposition home or self-care (01) | LOC: D.MAMMO 14:04 | DX: R92.8 Other abnormal and inconclusive findings on diagnostic imaging of breast (principal) ==

== ENCOUNTER 2018-01-18 06:41 | Day surgery (SDC) | payer MEDICARE, OTHER ==
[~2018-01-18] VITALS: Ht 170.2 cm; Wt 122.5 kg
--- NOTE | ~2018-01-18 | OP ---
PATIENT NAME: ANNABELLE GOMES MEDICAL RECORD: [id number] :47 LOCATION:D.OPS ADMISSION DATE: SURGEON: JOSÉ MANUEL LEONG MD DATE OF OPERATION: 01/18/2018 PREOPERATIVE DIAGNOSES: Hoarseness and bilateral vocal cord lesions. POSTOPERATIVE DIAGNOSES: Hoarseness and bilateral vocal cord lesions. PROCEDURES: Microsuspension laryngoscopy and excision of bilateral vocal cord lesion. SURGEON: José Manuel Leong MD ANESTHESIA: General orotracheal. BLOOD LOSS: Less than 1 cc. SPECIMENS: Lesions from anterior left and anterior right vocal cords. COMPLICATIONS: None. DISPOSITION: Recovery stable. 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 The right side looks smaller on endoscopy. Initially, the base was probably a 4-5 mm, but it was a large pedunculated lesion extended almost to the anterior commissure on the right side, but not quite. Lesion was so definitely more than a centimeter in size. Both had a papillomatous benign appearance. DESCRIPTION OF PROCEDURE: She was brought to the operating room and placed in supine position, sedated and intubated by anesthesia with a 6-0 endotracheal tube. The eyes were taped. Table was turned 90 degrees. Head drapes were applied. She was positioned for endoscopy. A plastic upper tooth guard was placed. Kleinsasser J laryngoscope was used to examine the hypopharynx, postcricoid area, piriforms, supraglottic larynx, vallecula. Everything was normal. Then, the cords were visualized, placing the scope under the epiglottis. The posterior cords and posterior glottis was normal. This was elevated with a Lewy and stabilized on a [place]. Microscope was brought in to examine the cords. The right lesion was excised first, it was grasped with an upbiting cup forceps and then scissors were used to trim leaving the normal cord in place just trimming off the lesion as it was fairly pedunculated and just had a thin attachment to the medial aspect of the cord. This was removed completely. There was probably 3-4 mm of normal mucosa before the anterior commissure. With that completely excised, the left side was then addressed. It was grasped and removed in the same fashion with an upbiting scissors. The area was suctioned. Afrin pledget was placed that was removed and examined the area again, there was no evidence of any residual lesion and the cords had a nice normal contour. The laryngoscope was taken out of suspension. The scope was removed. She was awakened, extubated, and transported to recovery in good condition. No complications. TRANSINT:[id number] Voice Confirmation ID: [id number] DOCUMENT ID: [id number] OPERATIVE REPORT [id number] ANNABELLE GOMES, JOSÉ MANUEL HURD at 1731 CC: [id number] DICTATION DATE: 01/18/18 1009 GOVERNMENT INSTRUCTOR: 01/18/18 1046 [facility] 01/18/18 [facility] [address] [place] [address]
--- NOTE | ~2018-01-18 | HP ---
PATIENT: ANNABELLE GOMES MEDICAL RECORD: [id number] ACCOUNT: [id number] LOCATION:TrayMaritza[facility]URGA : 47 ADMISSION DATE: 01/18/18 PCP: WILI PAGAN MD HISTORY AND PHYSICAL EXAMINATION HISTORY OF PRESENT ILLNESS: Ms. Gomes is 72 years old. She has been having problems with hoarseness and she has been found to have bilateral vocal cord lesion. She is being admitted for microsuspension laryngoscopy and excision of the vocal cord lesion. PAST MEDICAL HISTORY: Includes hypertension, reactive airway disease, reflux. PAST SURGICAL HISTORY: Includes total hysterectomy, knee replacement, cholecystectomy. CURRENT MEDICATIONS: Include mirtazapine, pantoprazole, hydrochlorothiazide, diltiazem, lisinopril, clonidine, ipratropium, albuterol inhaler q.i.d., divalproex. ALLERGIES: She lists problems with LORAZEPAM. PHYSICAL EXAMINATION: GENERAL: She has a moderately hoarse voice. FACE: Normal. EYES: Sclerae and conjunctivae are normal. EARS: Canals and TMs are normal. NOSE: No mass, polyps or drainage. ORAL CAVITY AND OROPHARYNX: Normal. NECK: Normal. Flexible laryngoscopy reveals bilateral vocal cord masses, anterior cords, right greater than left, consistent with papilloma in appearance. CHEST: Clear. CARDIOVASCULAR: Regular rate and rhythm, no murmur. EXTREMITIES: Normal. IMPRESSION: Hoarseness, bilateral vocal cord lesions. PLAN: Microsuspension laryngoscopy and excision of vocal cord lesions. TRANSINT:[id number] Voice Confirmation ID: [id number] DOCUMENT ID: [id number] DIMAS DAWN MD at 1731 CC: [id number] DICTATION DATE: 01/15/18 1126 POWDER SHOVELER: 01/15/18 1143 [facility] 01/18/18 [place] [id number]
[2018-01-18 06:57] LABS: HEMATOCRIT 35.3 % (36.0-48.0); HEMOGLOBIN 12.3 g/dL (12-16); MCH 28.3 pg (26.0-34.0); MCHC 34.8 g/dL (31.0-37.0); MCV 81.1 fL (80.0-100.0); MEAN PLATELET VOLUME 8.6 fL (7.4-10.4); RBC 4.35 10x6/uL (4.00-5.40); RDW 13.8 % (11.5-14.5); WBC 7.4 10x3/uL (4.8-10.8)
[2018-01-18 07:18] LABS: ANION GAP 13.4 mmol/L (8-16); CALCIUM 8.7 mg/dL (8.5-10.1); CARBON DIOXIDE 27.7 mmol/L (21.0-32.0); POTASSIUM - SERUM 4.1 mmol/L (3.5-5.1)
[2018-01-18 07:53] VITALS: BP 126/60; Ht 170.2 cm; Wt 122.5 kg
== END 2018-01-18 11:35 | disposition home or self-care (01) ==
LOC: D.OPS 06:41 → D.PAN 09:00 → D.OPS 09:00
PROVIDERS: Anesthesiology
DX: J38.3 Other diseases of vocal cords (principal); I10 Essential (primary) hypertension; J45.909 Unspecified asthma, uncomplicated; K21.9 Gastro-esophageal reflux disease without esophagitis; Z96.659 Presence of unspecified artificial knee joint; Z79.899 Other long term (current) drug therapy; Z88.8 Allergy status to other drugs, medicaments and biological substances; Z01.812 Encounter for preprocedural laboratory examination

== ENCOUNTER 2018-02-21 01:08 | Emergency (ER) | payer MEDICARE, OTHER ==
[~2018-02-21] VITALS: Ht 170.2 cm; Wt 125.0 kg
[2018-02-21 01:10] VITALS: Ht 170.2 cm; Wt 125.0 kg
[2018-02-21 02:02] LABS: APPEARANCE CLEAR (CLEAR); BILIRUBIN NEGATIVE (NEGATIVE); COLOR YELLOW (YELLOW); GLUCOSE NEGATIVE (NEGATIVE); KETONE NEGATIVE (NEGATIVE); NITRITE NEGATIVE (NEGATIVE); PROTEIN NEGATIVE (NEGATIVE); SPECIFIC GRAVITY 1.015 (1.005-1.020); UROBILINOGEN NORMAL (NORMAL)
[2018-02-21 02:23] LABS: BASOPHILS 0.1 % (0-2); EOSINOPHILS 0.8 % (0-7); HEMATOCRIT 33.4 % (36.0-48.0); HEMOGLOBIN 11.5 g/dL (12-16); IMMATURE GRANULOCYTES 0.4 % (0-5); LYMPHOCYTES 18.1 % (15-50); MCH 28.5 pg (26.0-34.0); MCHC 34.4 g/dL (31.0-37.0); MCV 82.7 fL (80.0-100.0); MEAN PLATELET VOLUME 8.4 fL (7.4-10.4); MONOCYTES 13.6 % (2-11); PLATELET COUNT 170 10x3/uL (130-400); RBC 4.04 10x6/uL (4.00-5.40); RDW 14.7 % (11.5-14.5); WBC 7.1 10x3/uL (4.8-10.8)
[2018-02-21 02:37] LABS: INR 0.87 (0.85-1.17); PROTIME 11.5 SECONDS (11.6-15.0)
[2018-02-21 02:41] LABS: ALBUMIN 3.5 g/dL (3.4-5.0); ALKALINE PHOSPHATASE 68 U/L (46-116); ALT (SGPT) 19 U/L (10-68); CALC OSMOLALITY 265 mosm/kg (275-300); CALCIUM 9.1 mg/dL (8.5-10.1); CARBON DIOXIDE 27.6 mmol/L (21.0-32.0); CHLORIDE - SERUM 94 mmol/L (98-107); CREATININE - SERUM 0.8 mg/dL (0.6-1.3); GLUCOSE 151 mg/dL (74-106); POTASSIUM - SERUM 3.8 mmol/L (3.5-5.1); PROTEIN - SERUM 6.3 g/dL (6.4-8.2); SODIUM 131 mmol/L (136-145); UREA NITROGEN 13 mg/dL (7-18); eGFR NON AFRICAN AMERICAN 75 mL/min (90-120)
[2018-02-21] MEDS ORDERED: ANTIVERT12.5 MG PO (03:26)
[2018-02-21 03:46] VITALS: BP 142/58
[2018-02-22] MEDS ORDERED: LEVAQUIN750 MG PO (21:13)
[2018-02-22] MEDS ORDERED: FLAGYL500 MG PO (21:13)
[2018-02-22] MEDS ORDERED: TYLENOL W/CODEI1 TAB PO (21:15)
== END 2018-02-21 03:47 | disposition home or self-care (01) ==
LOC: D.ER 01:08
PROVIDERS: Family Medicine
DX: B34.9 Viral infection, unspecified (principal); R42 Dizziness and giddiness; R11.10 Vomiting, unspecified; G40.909 Epilepsy, unspecified, not intractable, without status epilepticus; I10 Essential (primary) hypertension; K21.9 Gastro-esophageal reflux disease without esophagitis

== ENCOUNTER 2018-02-22 16:19 | Emergency (ER) | payer MEDICARE, OTHER ==
[~2018-02-22] VITALS: Ht 170.2 cm; Wt 99.8 kg
[~2018-02-22 16:19] MED LIST changes: +ANTIVERT12.5 MG PO
[2018-02-22 16:30] VITALS: Ht 170.2 cm; Wt 99.8 kg
[2018-02-22 16:53] LABS: BASOPHILS 0.1 % (0-2); EOSINOPHILS 0.3 % (0-7); HEMATOCRIT 36.9 % (36.0-48.0); HEMOGLOBIN 12.8 g/dL (12-16); IMMATURE GRANULOCYTES 0.3 % (0-5); LYMPHOCYTES 9.6 % (15-50); MCH 28.8 pg (26.0-34.0); MCHC 34.7 g/dL (31.0-37.0); MCV 82.9 fL (80.0-100.0); MEAN PLATELET VOLUME 8.7 fL (7.4-10.4); MONOCYTES 8.8 % (2-11); NEUTROPHILS 80.9 % (40-80); PLATELET COUNT 193 10x3/uL (130-400); RBC 4.45 10x6/uL (4.00-5.40); RDW 14.9 % (11.5-14.5)
[2018-02-22 16:56] LABS: WBC 10.5 10x3/uL (4.8-10.8)
[2018-02-22 17:08] LABS: APTT 24.3 SECONDS (22.8-39.4); INR 0.89 (0.85-1.17); PROTIME 11.7 SECONDS (11.6-15.0)
[2018-02-22 17:25] LABS: ALBUMIN 3.9 g/dL (3.4-5.0); ANION GAP 15.1 mmol/L (8-16); BILIRUBIN - TOTAL 0.3 mg/dL (0.2-1.3); CALCIUM 9.4 mg/dL (8.5-10.1); CARBON DIOXIDE 26.2 mmol/L (21.0-32.0); POTASSIUM - SERUM 4.3 mmol/L (3.5-5.1); PROTEIN - SERUM 6.8 g/dL (6.4-8.2)
[2018-02-22 17:26] LABS: CREATININE - SERUM 1.2 mg/dL (0.6-1.3)
[2018-02-22 18:45] LABS: APPEARANCE CLEAR (CLEAR); BILIRUBIN NEGATIVE (NEGATIVE); COLOR YELLOW (YELLOW); GLUCOSE NEGATIVE (NEGATIVE); KETONE NEGATIVE (NEGATIVE); NITRITE NEGATIVE (NEGATIVE); PROTEIN NEGATIVE (NEGATIVE); SPECIFIC GRAVITY 1.015 (1.005-1.020); UROBILINOGEN NORMAL (NORMAL)
[2018-02-22] MEDS ORDERED: LEVAQUIN750 MG PO (21:13)
[2018-02-22] MEDS ORDERED: FLAGYL500 MG PO (21:13)
[2018-02-22] MEDS ORDERED: TYLENOL W/CODEI1 TAB PO (21:15)
[2018-02-22 21:42] VITALS: BP 167/66
== END 2018-02-22 21:33 | disposition home or self-care (01) ==
LOC: D.ER 16:19
PROVIDERS: Family Medicine
DX: K52.9 Noninfective gastroenteritis and colitis, unspecified (principal); G40.909 Epilepsy, unspecified, not intractable, without status epilepticus; I10 Essential (primary) hypertension; K21.9 Gastro-esophageal reflux disease without esophagitis

== ENCOUNTER → 2018-04-19 08:00 | Outpatient (CLI) | payer MEDICARE, OTHER ==
[2018-02-22 16:30] VITALS: BMI 43.2
[~2018-04-19 08:00] MED LIST changes: +FLAGYL500 MG PO; +LEVAQUIN750 MG PO; +TYLENOL W/CODEI1 TAB PO
== END | disposition home or self-care (01) ==
LOC: D.MAMMO 08:00
DX: R92.8 Other abnormal and inconclusive findings on diagnostic imaging of breast (principal)

== ENCOUNTER → 2018-04-29 12:49 | Outpatient (CLI) | payer MEDICARE, OTHER ==
[2018-02-22 16:30] VITALS: BMI 43.2
== END | disposition home or self-care (01) ==
LOC: D.RT 03-04 10:00 → D.RAD 03-04 11:00 → D.RT 04-22 10:00 → D.RAD 04-22 11:00 → D.RT 12:49
DX: J45.991 Cough variant asthma (principal); J98.11 Atelectasis

== ENCOUNTER 2018-05-14 13:19 | Emergency (ER) | payer MEDICARE, OTHER ==
[~2018-05-14] VITALS: Ht 170.2 cm; Wt 127.3 kg
[2018-05-14 13:22] VITALS: Ht 170.2 cm; Wt 127.3 kg
[2018-05-14 15:02] VITALS: BP 140/56
[2018-05-14 15:41] LABS: BASOPHILS 0.2 % (0-2); EOSINOPHILS 0.2 % (0-7); HEMATOCRIT 34.6 % (36.0-48.0); HEMOGLOBIN 11.8 g/dL (12-16); IMMATURE GRANULOCYTES 0.3 % (0-5); LYMPHOCYTES 11.1 % (15-50); MCH 29.1 pg (26.0-34.0); MCHC 34.1 g/dL (31.0-37.0); MCV 85.4 fL (80.0-100.0); MEAN PLATELET VOLUME 9.2 fL (7.4-10.4); NEUTROPHILS 80.2 % (40-80); PLATELET COUNT 179 10x3/uL (130-400); RBC 4.05 10x6/uL (4.00-5.40); WBC 9.7 10x3/uL (4.8-10.8)
[2018-05-14 15:50] LABS: APTT 25.6 SECONDS (22.8-39.4); INR 0.94 (0.85-1.17); PROTIME 12.1 SECONDS (11.6-15.0)
[2018-05-14 15:57] LABS: ALBUMIN 3.5 g/dL (3.4-5.0); ALKALINE PHOSPHATASE 77 U/L (46-116); ALT (SGPT) 18 U/L (10-68); BILIRUBIN - TOTAL 0.27 mg/dL (0.2-1.3); CALC OSMOLALITY 267 mosm/kg (275-300); CARBON DIOXIDE 26.2 mmol/L (21.0-32.0); CHLORIDE - SERUM 96 mmol/L (98-107); CREATININE - SERUM 0.9 mg/dL (0.6-1.3); GLUCOSE 128 mg/dL (74-106); POTASSIUM - SERUM 4.2 mmol/L (3.5-5.1); PROTEIN - SERUM 6.8 g/dL (6.4-8.2); SODIUM 132 mmol/L (136-145); UREA NITROGEN 14 mg/dL (7-18); eGFR NON AFRICAN AMERICAN 65 mL/min (90-120)
[2018-05-14 16:06] LABS: CKMB 1.5 U/L (0.0-3.6); CREATINE KINASE 98 UL (21-215); MAGNESIUM - SERUM 1.9 mg/dL (1.8-2.4); PRO BNP 238 pg/mL (0-125)
[2018-05-14 16:13] LABS: TROPONIN-I < 0.017 ng/mL (0.000-0.060)
== END 2018-05-14 18:54 | disposition home or self-care (01) ==
LOC: D.ER 13:19
PROVIDERS: Family Medicine
DX: E86.0 Dehydration (principal); R42 Dizziness and giddiness; I10 Essential (primary) hypertension

== ENCOUNTER → 2018-09-30 10:31 | Outpatient (CLI) | payer MEDICARE, OTHER | END | disposition home or self-care (01) | LOC: D.HCCARDIO 10:31 | DX: I20.9 Angina pectoris, unspecified (principal) ==

== ENCOUNTER 2018-10-06 08:56 | Outpatient (CLI) | payer MEDICARE, OTHER ==
[~2018-10-06] VITALS: Ht 170.2 cm; Wt 122.7 kg
--- NOTE | ~2018-10-06 | HEMODYNAMI ---
PATIENT:ANNABELLE GOMES MEDICAL RECORD: [id number] : 47 LOCATION:D.CAT ADMISSION DATE: 10/06/18 Generatedon:10/06/201811:11 Patient name: ANNABELLE GOMES Patient #: [id number] SSN: : 1945 Date of study: 10/06/2018 Page: Of Hemodynamic Procedure Report Patient Data Patient Demographics Procedure consent was obtained First Name: ANNABELLE Gender: Female Last Name: ELISOE : 1945 [facility] Initial: VIANCA Age: 72 year(s) Patient #: [id number] Race: Unknown Additional ID: [id number] Contact details [address]: [address] [place] [address] RO[address] State: [place] City: [place] Zip code: [address] Past Medical History Allergies Allergen Reaction Date Comments Reported Other allergy 11/14/2016 avapro, corazpam Other allergy 10/06/2018 ADHESIVE TAPE, IRBESARTAN, LORAZEPAM Admission Admission Data Admission Date: 10/06/2018 Admission Time: 8:56 Height (in.): 67 BSA: 2.27 (m2) Height (cm.): 170.18 BMI: 41.03 (kg/m2) Weight (lbs.): 262 Weight (kg.): 118.84 Lab Results Lab Result Date: 10/06/2018 Lab Result Time: 0:00 Biochemistry Name Units Result Min Max BUN mg/dl 15 --(--*-)-- 7 18 Creatinine mg/dl 0.9 --(-*--)-- 0.6 1.3 CBC Name Units Result Min Max Hematocrit % 31.8 *-(----)-- 42 54 Hemoglobin g/dl 11.1 *-(----)-- 13.5 17.5 Procedure Procedure Types Cath Procedure Diagnostic Procedure C LHC w/Coronaries Procedure Description Procedure Date Procedure Date: 10/06/2018 Procedure Start Time: 11:00 Procedure End Time: 11:09 Procedure Staff Name Function Caden Davis MD Performing Physician Liliana Plata RN Car Construction Superintendent Nathanael Maynard RT Scrub Sulaiman Cook RN Nurse Gayathri Stoll RT Monitor Procedure Data Cath Procedure Fluoroscopy Diagnostic fluoroscopy Total fluoroscopy Time: 0.9 time: 0.9 min min Diagnostic fluoroscopy Total fluoroscopy dose: 384 dose: 384 mGy mGy Contrast Material Contrast Material Type Amount (ml) Isovue 300 38 Entry Location Entry Primary Successful Side Size Upsize Upsize Entry Closure Succes sful Closure Location (Fr) 1 (Fr) 2 (Fr) Remarks Device Remarks Radial Right 6 Fr artery Short Estimated blood loss: 5 ml Diagnostic catheters Device Type Used For End Catheter Placement logolineup Dexterity 5Fr Procedure JL 4.0 catheter (NO COST SUPPLY) Procedure Complications No complications Procedure Medications Medication Administration Route Dosage 0.9% NaCl I.V. 100 ml/hr Oxygen etCO2 Nasal cannula 2 l/min Heparin Flush Bag added to field 2 bags (1000units/500ml NS) Lidocaine 2% added to field 20 Radial Cocktail added to field 1 syringe (Verapamil 2mg/Nitro 400mcg/Heparin 1500units) Versed I.V. 2 mg Fentanyl I.V. 100 mcg Radial Cocktail I.A. 1 syringe (Verapamil 2mg/Nitro 400mcg/Heparin 1500units) Hemodynamics Rest BSA: 2.27 (m2) HGB: 11.1 (g/dl) O2 Consumption: Estimated: 198.67 (ml/min) O2 Co nsumption indexed: Estimated:87.52 (ml/min/m) Heart Rate: 58 (bpm) Snapshots Pre Cath Intra NCS Post Cath Vital Signs Time Heart Resp SPO2 etCO2 NIBP (mmHg) Rhythm Pain Sedation Rate (ipm) (%) (mmHg) Status Level (bpm) 10:52:28 60 20 94 0 158/74(123) NSR 0 (11) 10(A) , No pain 10:56:58 52 13 91 35.1 152/67(125) NSR 0 (11) 10(A) , No pain 11:02:22 48 11 92 36.6 138/64(104) NSR 0 (11) 10(A) , No pain 11:08:02 55 12 33.6 129/64(103) NSR 0 (11) 10(A) , No pain Medications Time Medication Route Dose Verified Delivered Reason Notes Effectiveness by by 10:56:59 0.9% NaCl I.V. 100 Sulaiman Sulaiman Per ml/hr Joyce Cook physician RN RN 10:57:09 Oxygen etCO2 2 l/min Sulaiman Sulaiman for low 02 Nasal Lorigan Joyce sats cannula RN RN 10:57:21 Heparin Flush added 2 bags Sulaiman Sulaiman used for Bag to Joyce Cook procedure (1000units/500ml field RN RN NS) 10:57:34 Lidocaine 2% added 20ml Sulaiman Sulaiman for local to vial Lorigan Dianeigan anesthetic field RN RN 10:57:45 Radial Cocktail added 1 Sulaiman Sulaiman used for (Verapamil to syringe Lorigan Lorigan procedure 2mg/Nitro field RN RN 400mcg/Heparin 1500units) 10:59:19 Versed I.V. 2 mg Sulaiman Sulaiman for sedation Joyce Cook RN RN 10:59:27 Fentanyl I.V. 100 mcg Sulaiman Sulaiman for sedation Joyce Cook RN RN 11:03:51 Radial Cocktail I.A. 1 Sulaiman Caden for (Verapamil syringe Joyce Davis MD vasodilation 2mg/Nitro RN 400mcg/Heparin 1500units) Procedure Log Time Note 10:35:15 Liliana Plata RN sent for patient. Start room use. 10:40:07 Signed procedure consent form obtained from patient. 10:40:08 Diagnostic Cath status Elective 10:40:09 Time tracking: Regular hours (M-F 7:00 - 5:00) 10:40:13 Plan of Care:Hemodynamics will remain stable., Cardiac rhythm will remain stable., Comfort level will be maintained., Respiratory function will remain adequate., Patient/ family verbilizes understanding of procedure., Procedure tolerated without complication., Recovers from procedure without complications.. 10:46:08 Patient received from Pre/Post Procedure Room to CCL 1 Alert and oriented. Tansferred to table in Supine position. 10:46:10 Warm blankets applied, and hung hugger turned on for patient comfort. 10:46:10 Correct patient and procedure confirmed by team. 10:46:11 ECG and BP/O2 sat monitors applied to patient. 10:46:24 Patient Height : 67 inches 10:46:28 Patient Weight : 262 lbs 10:51:04 Vital chart was started 10:51:10 Baseline sample Acquired. 10:51:15 Rhythm: sinus bradycardia 10:51:16 Full Disclosure recording started 10:51:39 H&P Date Dictated: 09/22/2018 Within 30 days and on chart., H&P Addendum completed by physician on day of procedure. (MUST COMPLETE FOR ALL OUTPATIENTS). 10:51:40 Pre-procedure instructions explained to patient. 10:51:41 Pre-op teaching completed and patient verbalized understanding. 10:51:42 Family in patients room. 10:51:44 Patient NPO since Midnight. 10:52:04 Patient allergic to Other allergyADHESIVE TAPE, IRBESARTAN, LORAZEPAM 10:52:06 Is patient on blood thinner?No 10:52:08 Patient diabetic? No. 10:52:10 Patient not . Patient is over age 55. 10:52:13 Previous problem with sedation/anesthesia? No ? 10:52:13 Snore? Yes 10:52:14 Sleep apnea? Yes 10:52:15 Deviated septum? No 10:52:17 Opens mouth fully? Yes 10:52:18 Sticks out tongue? Yes 10:52:28 Airway obstruction? Yes ASTHMA 10:54:11 Dentures? No ? 10:54:16 Modified Wali's test Ulnar < 7 seconds 10:54:20 Patient pain scale 0/10 ?. 10:54:23 IV patent on arrival in left hand with 0.9% NaCl at [facility]. 10:56:35 Lab Result : Creatinine 0.9 mg/dl 10:56:35 Lab Result : BUN 15 mg/dl 10:56:35 Lab Result : Hemoglobin 11.1 g/dl 10:56:35 Lab Result : Hematocrit 31.8 % 10:56:37 Lab results completed and on chart. 10:56:40 Right Radial & Right Groin area was prepped with chlora-prep and draped in sterile fashion 10:56:42 Alarms reviewed by R. N. 10:56:42 Sharps counted by scrub and verified by R.N. 10:56:46 Use device set Radial Dx or PCI 10:56:47 ACIST Syringe (67308) opened to sterile field. 10:56:49 Bag Decanter () opened to sterile field. 10:56:50 ACIST Hand Control (25020) opened to sterile field. 10:56:51 ACIST Manifold (93255) opened to sterile field. 10:56:51 Tegaderm 4 x 4 (1626W) opened to sterile field. 10:56:53 Medline Cath Pack ([id number]) opened to sterile field. 10:56:53 DIAGNOSTIC WIRE .035 260cm J wire (083197) opened to sterile field. 10:56:54 MBrace Wrist Support ([id number]) opened to sterile field. 10:56:55 SHEATH 6FR Slender (801060) opened to sterile field. 10:56:59 0.9% NaCl 100 ml/hr I.V. was administered by Sulaiman Cook RN; Per physician; 10:57:09 Oxygen 2 l/min etCO2 Nasal cannula was administered by Sulaiman Cook RN; for low 02 sats; 10:57:21 Heparin Flush Bag (1000units/500ml NS) 2 bags added to field was administered by Sulaiman Cook RN; used for procedure; 10:57:34 Lidocaine 2% 20ml vial added to field was administered by Sulaiman Cook RN; for local anesthetic; 10:57:45 Radial Cocktail (Verapamil 2mg/Nitro 400mcg/Heparin 1500units) 1 syringe added to field was administered by Sulaiman Cook RN; used for procedure; 10:58:15 --------ALL STOP TIME OUT------ 10:58:15 Final Timeout: patient, procedure, and site verified with staff and physician. All members of the team are in agreement. 10:58:16 Right Radial & Right Groin site verified by team. 10:58:19 Maximum allowable Isovue 300 dose 300ml. Physician notified. (300ml for normal creatinines. For patients with creatinine of 1.7 or higher multiply weight(kg) x 5 divided by creatinine.) 10:58:22 Fire Safety Assessment: A--An alcohol-based skin anteseptic being used preoperatively., C--Open oxygen or nitrous oxide is being used., D--An ESU, laser, or fiber-optic light is being used. 10:58:24 Physical assessment completed. ASA score P 2 - A patient with mild systemic disease as per Caden Davis MD. 10:58:27 Sedation plan: IV Moderate Sedation Medication:Versed, Fentanyl 10:59:19 Versed 2 mg I.V. was administered by Sulaiman Cook RN; for sedation; 10:59:27 Fentanyl 100 mcg I.V. was administered by Sulaiman Cook RN; for sedation; 10:59:45 Procedure started. 11:00:30 Local anesthetic to right radial artery with Lidocaine 2% by Caden Davis MD.INITIAL ACCESS ONLY 11:00:51 Zero performed for pressure channel P1 11:02:58 A 6 Fr Short sheath was inserted into the Right Radial artery 11:03:39 A Qihoo 360 Technology 5Fr JL 4.0 catheter (NO COST SUPPLY) was advanced over the wire and used for Procedure. 11:03:51 Radial Cocktail (Verapamil 2mg/Nitro 400mcg/Heparin 1500units) 1 syringe I.A. was administered by Caden Davis MD; for vasodilation; 11:04:09 LV gram done using BECERRA 11:04:12 Injector settings: Ml/sec: 7, Volume: 15, 11:04:37 EF : 60 % 11:05:21 LCA angiography performed. 11:05:42 RCA angiography performed. 11:05:44 Catheter removed. 11:05:48 Procedure ended.(Physican Out) 11:06:46 TR BAND Large ([id number]) opened to sterile field. 11:07:55 Fluoroscopy time 00.90 minutes. 11:07:59 Fluoroscopy dose: 384 mGy 11:07:59 Flurop Dose total: 384 11:08:02 Contrast amount:Isovue 300 38ml. 11:08:04 TR band inflated with 12cc of air. 11:08:06 Post-procedure physical assessment completed. ASA score P 2 - A patient with mild systemic disease as per Caden Davis MD. 11:08:09 Post procedure rhythm: sinus bradycardia 11:08:11 Estimated blood loss: 5 ml 11:08:13 Post procedure instruction explained to patient.Patient verbalizes understanding. 11:08:13 Patient needs reinforcement of post procedure teaching. 11:09:33 Procedure and supply charges have been captured, reviewed, submitted and are correct. 11:09:34 Procedure Complication : No complications 11:09:36 Vital chart was stopped 11:09:36 See physician's report for complete and final results. 11:09:38 Report given to Pre/Post Procedure Room. 11:09:40 Patient transfered to Pre/Post Procedure Room with Bed. 11:09:42 Procedure ended. 11:09:42 Full Disclosure recording stopped 11:09:48 End room use (Document Last) Device Usage Item Name Manufacture Quantity Catalog Hospital Part Current Minimal Lot# / Number Charge Number Stock Stock Serial# Code ACIST Acist 1 55854 786933 755586 379104 20 Syringe Medical (65141) Systems Inc Bag Microtek 1 2001S 554574 71721 989094 5 Decanter Medical Inc. () ACIST Hand Acist 1 68985 470211 076615 933928 5 Control Medical (10093) Systems Inc ACIST Acist 1 30258 979042 583013 615142 5 Manifold Medical (29490) Systems Inc Tegaderm 4 3M 1 1626W 908918 536748 085962 5 x 4 (1626W) Medline Medline 1 [id number] 649861 47940 324011 5 Cath Pack ([id number]) DIAGNOSTIC [facility] [place] 1 228566 587650 719595 550441 30 WIRE .035 260cm J wire (195615) MBrace Advanced 1 140-0250-00 259994 84484 895376 5 Wrist Vascular Support Dynamics ([id number]) SHEATH 6FR Terumo 1 [id number] 624623 481178 822803 5 Slender (80-1060) Medtronic Medtronic 1 [id number] 335917 674976 5 Dexterity 5Fr JL 4.0 catheter (NO COST SUPPLY) TR BAND Terumo 1 [id number] 152450 516288 816614 40 Large ([id number]) Signature Audit [place] Stage Time Signature Unsigned Intra-Procedure 10/06/2018 Gayathri Stoll 11:11:55 AM RT(R) Signatures Monitor : Gayathri Stoll Signature : RT Date : Time : [place] [id number]
[2018-10-06] MEDS ORDERED: BREO ELLIPTA 21 EACH (09:26)
[2018-10-06] MEDS ORDERED: MUCINEX DM ER1 EAC1 PO (09:27)
[2018-10-06] MEDS ORDERED: IPRAT-ALBUT 0.5-3 ML UPD (09:28)
[2018-10-06] MEDS ORDERED: CARDURA4 MG PO (09:31)
[2018-10-06 09:54] VITALS: BP 152/65; Ht 170.2 cm; Wt 122.7 kg
[2018-10-06 10:14] LABS: ANION GAP 11.7 mmol/L (8-16); BASOPHILS 0.5 % (0-2); CALCIUM 9.2 mg/dL (8.5-10.1); CARBON DIOXIDE 27.4 mmol/L (21.0-32.0); CREATININE - SERUM 0.9 mg/dL (0.6-1.3); EOSINOPHILS 1.2 % (0-7); HEMATOCRIT 31.8 % (36.0-48.0); HEMOGLOBIN 11.1 g/dL (12-16); IMMATURE GRANULOCYTES 0.3 % (0-5); LYMPHOCYTES 29.4 % (15-50); MCHC 34.9 g/dL (31.0-37.0); MEAN PLATELET VOLUME 8.7 fL (7.4-10.4); MONOCYTES 11.9 % (2-11); NEUTROPHILS 56.7 % (40-80); POTASSIUM - SERUM 4.1 mmol/L (3.5-5.1); RBC 3.83 10x6/uL (4.00-5.40); RDW 14.4 % (11.5-14.5)
[2018-10-06 10:23] LABS: PLATELET COUNT 215 10x3/uL (130-400)
--- NOTE | 2018-10-06 11:35 | NUR ---
2L NC, NO RESP DISTRESS. RIGHT WRIST TR BAND CDI, NO BLEEDING OR HEMATOMA NOTED. NO C/O NAUSEA OR PAIN. VSS. FAMILY AT BEDSIDE, CALL LIGHT WITHIN REAACH.
--- NOTE | 2018-10-06 12:05 | NUR ---
SIPPING ON DRINK AND EATING SANDWICH WITH NO C/O NAUSEA. RIGHT WRIST TR BAND CDI, NO BLEEDING NOTED. DENIES ANY NEEDS. VSS. WILL CONTINUE TO MONITOR.
--- NOTE | 2018-10-06 12:20 | NUR ---
3CC OF AIR REMOVED FROM TR BAND WITH NO BLEEDING NOTED. VSS. ECHO STAFF AT BEDSIDE TO DO ECHO. WILL CONTINUE TO MONITOR CLOSELY.
--- NOTE | 2018-10-06 12:50 | NUR ---
3CC OF AIR REMOVED FROM TR BAND WITH NO BLEEDING NOTED. RIGHT PIV D/C'D WITH CATHETER INTACT, BAND AID TO SITE. UP TO BEDSIDE TO GET DRESSED. AMBULATED TO RESTROOM.
--- NOTE | 2018-10-06 13:03 | NUR ---
3CC OF AIR REMOVED FROM TR BAND WITH NO BLEEDING NOTED.
--- NOTE | 2018-10-06 13:08 | NUR ---
DISCHARGE INSTRUCTIONS GIVEN, VERBALIZED UNDERSTANDING. REMAINING AIR REMOVED FROM TR BAND WITH NO BLEEDING NOTED. DRESSING PLACED TO SITE.
--- NOTE | 2018-10-06 13:17 | NUR ---
TAKEN OUT VIA WHEELCHAIR BY CATH SCALPING MACHINE OPERATOR. LEFT FACILITY WITH FAMILY AND ALL PERSONAL BELONGINGS.
--- NOTE | 2018-10-12 17:17 | EC ---
PATIENT:ANNABELLE GOMES DATE OF SERVICE: 10/06/18 SEX: F MEDICAL RECORD: [id number] DATE OF : 47 LOCATION:D.CAT AGE OF PATIENT: 72 ADMISSION DATE: 10/06/18 REFERRING PHYSICIAN: INTERPRETING PHYSICIAN: KANWAL DAVIS MD ECHOCARDIOGRAM REPORT ECHO CHARGES 4 ECHO COMPLETE Date: 10/06/18 CLINICAL DIAGNOSIS: MURMUR ECHOCARDIOGRAPHIC MEASUREMENTS (adult normal given) AC root (d.<3.7cm) 2.3 cm LV Septum d (<1.2 cm> 1.2 cm Valve Excursion 0.9 cm LV Septum (systole) 1.3 cm Left Atria (s.<4.0cm> 3.4 cm LVPW d(<1.2cm) 0.8 cm RV (d.<2.3cm) 3.3 cm LVPW (sytole) 1.3 cm LV diastole(<5.6CM) 5.7 cm MV E-F(>70mm/sec) cm LV systole 4.6 cm LVOT Diameter 2.1 cm MV exc.(>10mm) cm Est.ejection fraction (50-75%) % DOPPLER: LVIT cm/sec A 92 cm/sec E 91 cm/sec LA cm/sec RVSP 24.5 mmHg LVOT 163 cm/sec AOP1/2T m/s Asc. Ao 247 cm/sec RVOT 114 cm/sec RA cm/sec PA 149 cm/sec AV Gradient Peak 24.3 mmHg AV Mean 12.1 mmHg AV Area 2.2 cm MV Gradient Peak 5.4 mmHg MV Mean 2.2 mmHg MV Area cm COMMENTS: [employer] Manager: Kori [facility] Principal System Software Engineer: 1 Dr. Davis TAPE# PACS Pericardial Effusion N DATE OF SERVICE: 10/06/2018 ECHOCARDIOGRAM FINDINGS: 1. Left ventricular chamber size is within normal limits. Left ventricular systolic function is normal. Overall ejection fraction estimated at 55%. 2. Left atrium, right atrium, and right ventricular chamber sizes are within normal limits. 3. Valvular structures: Aortic valve demonstrates mild calcific aortic ECHOCARDIOGRAM REPORT [id number] ANNABELLE GOMES stenosis, valve area calculates 2.0 cm-squared with gradient of 24 mm across the valve. The remaining valvular structures have normal structure and motion. 4. Doppler interrogation elsewise reveals mild mitral regurgitation, mild tricuspid regurgitation, no other valvular insufficiency or stenosis. Pulmonary systolic pressure is normal estimated at 25 mmHg. 5. No evidence of pericardial effusion or left ventricular thrombus. TRANSINT:[id number] Voice Confirmation ID: [id number] DOCUMENT ID: [id number] KANWAL DAVIS MD at 1717 CC: [id number] DICTATION DATE: 10/06/18 172 REGIONAL EDUCATION COORDINATOR: 10/06/18 2303 DEP CLI 10/06/[address] [address]
--- NOTE | 2018-10-12 17:17 | OP ---
PATIENT NAME: ANNABELLE GOMES MEDICAL RECORD: [id number] :47 LOCATION:D.CAT ADMISSION DATE: SURGEON: KANWAL WATERS MD DATE OF OPERATION: 10/06/2018 PROCEDURES: 1. Left heart catheterization. 2. Selective coronary angiography. 3. Left ventriculogram. INDICATION: Angina, shortness of breath, hypertension, abnormal nuclear stress test. PROCEDURE IN DETAIL: After informed consent was obtained and after a detailed description of risks, benefits as well as alternative therapies, the patient elected to proceed with angiogram and heart catheterization. The right radial area was prepped and draped in normal sterile fashion. Right radial artery was cannulated via modified Seldinger technique with placement of 6-Peruvian sheath. All catheters exchanged through this sheath. FINDINGS: The left ventriculogram was performed in standard 30-degree BECERRA view, reveals good cardiac wall motion throughout all segments. Overall ejection fraction estimated at 55%. SELECTIVE CORONARY ANGIOGRAPHY: Left main, left anterior descending, left circumflex, right coronary artery are all smooth-walled vessels with no angiographic evidence of coronary artery disease. OVERALL IMPRESSION: 1. No angiographic evidence of coronary artery disease. 2. Normal left heart pressures. 3. Normal left ventricular systolic function. Chest pain is noncardiac in etiology. No further cardiac workup needs to be ascertained. TRANSINT:[id number] Voice Confirmation ID: [id number] DOCUMENT ID: [id number] KANWAL WATERS MD at 1717 CC: [id number] DICTATION DATE: 10/06/18 1109 OPTICAL WORKER: 10/06/18 1508 DEP CLI 10/06/18 [place] [id number]
== END 2018-10-06 13:17 | disposition home or self-care (01) ==
LOC: D.CATH 08:56
PROVIDERS: ATTEND Internal Medicine Interventional Cardiology
DX: I20.9 Angina pectoris, unspecified (principal); I10 Essential (primary) hypertension; R06.02 Shortness of breath; Z01.812 Encounter for preprocedural laboratory examination

== ENCOUNTER → 2020-02-06 11:01 | Outpatient (CLI) | payer MEDICARE, OTHER ==
[2018-10-06 09:54] VITALS: BMI 42.4
[~2020-02-06 11:01] MED LIST changes: +CARDURA4 MG PO
== END | disposition home or self-care (01) ==
LOC: D.LAB 11:01
PROVIDERS: ATTEND Internal Medicine Pulmonary Disease
DX: Z11.59 Encounter for screening for other viral diseases (principal)

== ENCOUNTER → 2020-02-09 08:51 | Outpatient (CLI) | payer MEDICARE, OTHER ==
[2018-10-06 09:54] VITALS: BMI 42.4
== END | disposition home or self-care (01) ==
LOC: D.RT 08:51
PROVIDERS: ATTEND Internal Medicine Pulmonary Disease
DX: J45.991 Cough variant asthma (principal); J98.11 Atelectasis

== ENCOUNTER 2020-08-20 14:30 | Outpatient (CLI) | payer MEDICARE, OTHER ==
[2018-10-06 09:54] VITALS: BMI 42.4
== END 2020-08-20 23:59 | disposition home or self-care (01) ==
LOC: D.MAMMO 14:30
PROVIDERS: ATTEND Family Medicine
DX: Z12.31 Encounter for screening mammogram for malignant neoplasm of breast (principal)

== ENCOUNTER → 2020-09-25 13:43 | Outpatient (CLI) | payer MEDICARE, OTHER ==
[2018-10-06 09:54] VITALS: BMI 42.4
== END | disposition home or self-care (01) ==
LOC: D.LAB 13:43
PROVIDERS: ATTEND Internal Medicine Pulmonary Disease
DX: Z11.52 Encounter for screening for COVID-19 (principal)

== ENCOUNTER → 2020-10-02 08:44 | Outpatient (CLI) | payer MEDICARE, OTHER ==
[2018-10-06 09:54] VITALS: BMI 42.4
== END | disposition home or self-care (01) ==
LOC: D.RT 08:44
PROVIDERS: ATTEND Internal Medicine Pulmonary Disease
DX: J45.991 Cough variant asthma (principal); J98.11 Atelectasis